=== PATIENT | female | born 1980 | race Caucasian/White ===

== ENCOUNTER 2017-05-09 21:38 | Emergency (ER) | payer BC ==
[2017-05-09] MEDS ORDERED: CITALOPRAM HBR40 M1 (21:46)
== END 2017-05-09 22:22 | disposition home or self-care (01) ==
LOC: SED 21:38
DX: L23.9 Allergic contact dermatitis, unspecified cause (principal); F32.9 Major depressive disorder, single episode, unspecified
CPT/HCPCS: 99282